=== PATIENT | female | born 1975 | race Caucasian/White ===

== ENCOUNTER 2022-04-24 07:26 | Day surgery (SDC) | payer BC ==
[~2022-04-24 07:26] MED LIST: Lactated Ringers 1,000 ML IV SCH; Sodium Chloride 0.9% 10 ML Syringe FLUSH PRN; Sodium Chloride 0.9% 2.5 ML Syringe FLUSH PRN; Sodium Chloride 0.9% 20 ML SDV IV PRN
[2022-04-24] MEDS ORDERED: Propofol 200 MG/20 ML SDV ONE (07:35)
== END 2022-04-24 10:00 | disposition home or self-care (01) ==
LOC: MW.SDS 07:26 → MERGE 09:30 → MW.SDS 10:00
PROVIDERS: ATTEND Surgery
DX: Z12.11 Encounter for screening for malignant neoplasm of colon (principal); K63.5 Polyp of colon; K57.30 Diverticulosis of large intestine without perforation or abscess without bleeding; I10 Essential (primary) hypertension; F17.210 Nicotine dependence, cigarettes, uncomplicated; E78.00 Pure hypercholesterolemia, unspecified; Z88.2 Allergy status to sulfonamides; Z88.0 Allergy status to penicillin; J30.9 Allergic rhinitis, unspecified; Z98.890 Other specified postprocedural states; Z90.49 Acquired absence of other specified parts of digestive tract; Z79.899 Other long term (current) drug therapy
CPT/HCPCS: 45380; J2704; J7120; 00812

== ENCOUNTER 2024-01-25 16:55 | Emergency (ER) | payer BC ==
[2024-01-25 17:57] LABS: APPEARANCE,URINE CLEAR; BILIRUBIN,URINE NEGATIVE (NEGATIVE); COLOR,URINE YELLOW; GLUCOSE,URINE 500 mg/dL (NEGATIVE); KETONES,URINE NEGATIVE (NEGATIVE); LEUKOCYTE ESTERASE,URINE TRACE (NEGATIVE); NITRITE,URINE POSITIVE (NEGATIVE); OCCULT BLOOD,URINE MODERATE (NEGATIVE); PROTEIN,URINE 100 mg/dL (NEGATIVE)
[2024-01-25 18:03] LABS: CORONAVIRUS COVID-19 NAA NEGATIVE (NEGATIVE); INFLUENZA A NAA NEGATIVE (NEGATIVE); INFLUENZA B NAA NEGATIVE (NEGATIVE)
[2024-01-25 18:08] LABS: BACTERIA,URINE 3+ (NEGATIVE); EPITHELIAL CELLS,URINE RARE (NONE-FEW); WBC,URINE 20-30 (0-5/HPF)
[2024-01-25] MEDS: cefTRIAXone 1 GM Vial IM ONE (18:25)
[2024-01-25] MEDS: Lidocaine 1% PF 2 ML SDV INJECT ONE (18:25)
== END 2024-01-25 18:44 | disposition home or self-care (01) ==
LOC: MW.ED 16:55
DX: N39.0 Urinary tract infection, site not specified (principal); F17.210 Nicotine dependence, cigarettes, uncomplicated; I10 Essential (primary) hypertension; Z79.899 Other long term (current) drug therapy; Z88.1 Allergy status to other antibiotic agents; Z88.2 Allergy status to sulfonamides; Z75.8 Other problems related to medical facilities and other health care
CPT/HCPCS: 0240U; 81001; 87086; 87651; 96372; 99283; J0696; 87088; 87186; J3490